=== PATIENT | male | born 1985 | race Caucasian/White ===

== ENCOUNTER 2019-11-07 01:34 | Observation (INO) ==
[2019-11-07] MEDS ORDERED: *HR* LORazepam 2 MG/ML VIAL IVP ONE ×2 (02:09→03:38)
[2019-11-07 02:55] LABS: Basophils # 0.1 K/mcL (0.0-0.2); Basophils % 0.6 %; Eosinophils # 0.1 K/mcL (0.0-0.6); Eosinophils % 0.7 %; Hematocrit 50.2 % (37.5-50.1); Hemoglobin 17.2 g/dL (12.9-16.9); Immature Granulocytes % 0.4 % (0-4); Lymphocytes # 1.7 K/mcL (0.6-4.6); Lymphocytes % 17.1 %; Mean Corpuscular HGB Conc 34.3 g/dL (31.6-35.5); Mean Corpuscular Hemoglobin 30.5 pg (28.0-33.3); Mean Platelet Volume 10.3 fL (9.4-12.4); Monocytes # 1.2 K/mcL (0.0-1.3); Monocytes % 12.5 %; Neutrophils # 6.8 K/mcL (1.6-8.9); Platelet Count 148 K/mcL (140-400); Red Blood Count 5.64 M/mcL (4.19-5.50); Red Cell Distribution Width 13.5 % (11.5-14.5); Segmented Neutrophils % 68.7 %
[2019-11-07 02:56] LABS: Prothrombin Time 10.8 Seconds (9.4-12.1)
[2019-11-07 02:58] LABS: Activated Partial Thrombo Time 30.6 Seconds (26.0-36.0)
[2019-11-07 03:08] LABS: Amphetamine Screen,Urine Positive ng/mL (Cutoff=1000); Barbiturate Screen,Urine Negative ng/mL (Cutoff=200); Benzodiazepines Screen,Urine Negative ng/mL (Cutoff=200); Cannabinoid Screen,Urine Negative ng/mL (Cutoff = 50); Cocaine Screen,Urine Positive ng/mL (Cutoff= 300); Opiate Screen,Urine Negative ng/mL (Cutoff=300); Phencyclidine Screen,Urine Negative ng/mL (Cutoff=25)
[2019-11-07 03:10] LABS: Alanine Aminotransferase 99 Units/L (7-52); Albumin 5.1 g/dL (3.5-5.7); Albumin/Globulin Ratio 1.5 (1.1-2.2); Alkaline Phosphatase 57 Units/L (34-104); Aspartate Amino Transferase 96 Units/L (13-39); BUN/Creatinine Ratio 8 (6-26); Bilirubin,Direct 0.2 mg/dL (0.0-0.2); Bilirubin,Indirect 0.8 mg/dL (0.0-1.0); Blood Urea Nitrogen 6 mg/dL (6-20); Calcium 10.6 mg/dL (8.6-10.3); Carbon Dioxide 28 mEq/L (23-29); Chloride 95 mEq/L (98-107); Ethanol < 10 mg/dL (Less than 10); Globulin 3.4 g/dL (2.4-3.5); Glucose 107 mg/dL (70-105); Lipase 41 Units/L (11-82); Osmolality,Calculated 280 (280-300); Potassium 3.8 mEq/L (3.5-5.1); Sodium 136 mEq/L (136-145); Total Protein 8.5 g/dL (6.4-8.9); Troponin I < 0.03 ng/mL (< 0.04); eGFR For African Americans > 60 (> 60); eGFR For Non-African Americans > 60 (> 60)
[2019-11-07] MEDS ORDERED: 0.9 % Sodium Chloride 1,000 ML ONE (03:37)
[2019-11-07] MEDS ORDERED: 0.9 % Sodium Chloride 1,000 ML IV ONE (03:52)
[2019-11-07] MEDS ORDERED: Aspirin 325 MG TABLET PO ONE (04:01)
[2019-11-07] MEDS ORDERED: *HR* Promethazine 25 MG/ML VIAL IVP PRN (04:42)
[2019-11-07] MEDS ORDERED: Naloxone 0.4 MG/ML INJ IVP PRN (04:42)
[2019-11-07] MEDS ORDERED: 0.9 % Sodium Chloride 1,000 ML IVC SCH (04:45)
[2019-11-07] MEDS ORDERED: Perflutren Lipid Microsphere 1.3 ML in 0.9 % Sodium Chloride 8.7 ML IVP PRN (04:51)
[2019-11-07 06:21] VITALS: BP 149/80
[2019-11-07] MEDS ORDERED: *HR* LORazepam 2 MG/ML VIAL IVP PRN (06:51)
[2019-11-07 07:35] LABS: Cholesterol 247 mg/dL (< 200); HDL Cholesterol 82 mg/dL (40-59); LDL Cholesterol,Calculated 146 mg/dL (< 100); Phosphorous 3.6 mg/dL (2.7-4.5); Triglycerides 95 mg/dL (< 150)
[2019-11-07 07:47] LABS: Thyroid Stimulating Hormone 3.173 mcIU/mL (0.340-5.600)
[2019-11-07] MEDS ORDERED: Folic Acid 1 MG TABLET PO SCH (09:00)
[2019-11-07] MEDS ORDERED: Thiamine (B-1) 100 MG, Folic Acid 1 MG, MVI, adult with vitamin K 10 ML in 0.9 % Sodi... IVPB SCH (18:00)
== END 2019-11-07 11:11 | disposition home or self-care (01) ==
LOC: SUATTDRO → 2ANU 01:34 → EMEROOARM 01:34 → 2ANU 10:17
PROVIDERS: ADMIT Family Medicine; ATTEND Family Medicine

== ENCOUNTER 2019-11-07 11:13 | Inpatient (IN) ==
[~2019-11-07 11:13] MED LIST: *HR* Etomidate 40 MG/20 ML VIAL IVP ONE; *HR* Midazolam HCl 2 MG/2 ML VIAL IVP ONE; *HR* Midazolam HCl 5 MG/5 ML VIAL IVP ONE; *HR* Propofol 200 MG/20 ML VIAL IVP ONE; *HR* Rocuronium Bromide 50 MG/5 ML VIAL IVP ONE
[2019-11-07] MEDS ORDERED: *HR* LORazepam 1 MG TABLET PO ONE (11:27)
[2019-11-07] MEDS ORDERED: Ondansetron 4 MG/2 ML VIAL IVP PRN (12:06)
[2019-11-07] MEDS ORDERED: Naloxone 0.4 MG/ML INJ IVP PRN (12:06)
[2019-11-07] MEDS ORDERED: Mag Hydrox/Al Hydrox/Simeth 30 ML UDC PO PRN (12:06)
[2019-11-07] MEDS ORDERED: MOM Conc 10 ML UD.LIQ PO PRN (12:06)
[2019-11-07] MEDS ORDERED: *HR* LORazepam 2 MG/ML VIAL IVP PRN ×3 (12:10→14:32)
[2019-11-07 13:16] LABS: Troponin I < 0.03 ng/mL (< 0.04)
[2019-11-07] MEDS ORDERED: cloNIDine HCL 0.1 MG TABLET PO SCH ×2 (14:25→15:00)
[2019-11-07] MEDS ORDERED: Haloperidol Lactate 5 MG/ML VIAL IM PRN (14:31)
[2019-11-07] MEDS: *HR* LORazepam 2 MG/ML VIAL IVP PRN ×4 (15:46→16:40)
[2019-11-07] MEDS: Dexmedetomidine HCl 400 MCG/100 ML MLS IVC SCH ×3 (16:11→21:23)
[2019-11-07] MEDS ORDERED: Ringers Solution, Lactated 1,000 ML IVC SCH (16:30)
[2019-11-07] MEDS ORDERED: Midazolam HCl 50 MG/100 ML IV.SOLN IVC SCH (17:30)
[2019-11-07] MEDS ORDERED: FentaNYL (PF) 1,000 MCG/100 ML IV.SOLN IVC SCH ×2 (17:30→17:49)
[2019-11-07 17:33] LABS: Creatine Kinase 931 Units/L (30-223)
[2019-11-07] MEDS ORDERED: PHENobarbital 65 MG/ML VIAL IVP PRN (17:47)
[2019-11-07] MEDS ORDERED: Ringers Solution, Lactated 1,000 ML ONE (17:56)
[2019-11-07] MEDS ORDERED: Artificial Tears SOLN 15 ML BOTTLE BOTH EYES PRN (18:24)
[2019-11-07 18:37] LABS: Adenovirus Not Detected (Not Detect); Bordetella Pertussis Not Detected (Not Detect); Chlamydophila pneumoniae Not Detected (Not Detect); Coronavirus 229E Not Detected (Not Detect); Coronavirus HKU1 Not Detected (Not Detect); Coronavirus NL63 Not Detected (Not Detect); Coronavirus OC43 Not Detected (Not Detect); Human Metapneumovirus Not Detected (Not Detect); Human Rhinovirus/Enterovirus Not Detected (Not Detect); Influenza A Subtype 2009 H1 Not Detected (Not Detect); Influenza B Not Detected (Not Detect); Mycoplasma pneumoniae Not Detected (Not Detect); Parainfluenza Virus 1 Not Detected (Not Detect); Parainfluenza Virus 2 Not Detected (Not Detect); Parainfluenza Virus 3 Not Detected (Not Detect); Parainfluenza Virus 4 Not Detected (Not Detect); Respiratory Syncytial Virus Not Detected (Not Detect); SARS-CoV-2 Not Detected (Not Detect)
[2019-11-07 19:06] LABS: ABG Base Excess 1 mEq/L (-2 to 3); ABG HCO3 26 mEq/L (21-27); ABG Oxygen Saturation 100 % (95-98); ABG PCO2 43 mmHg (35-45); ABG PH 7.39 pH Units (7.32-7.45); ABG PO2 470 mmHg (85-104); ABG TCO2 28 mEq/L (20-26)
[2019-11-07] MEDS ORDERED: Dexmedetomidine HCl 400 MCG/100 ML MLS IVC ONE (19:07)
[2019-11-07 19:40] LABS: Bilirubin,Urine Negative (Negative); Blood,Urine Small (Negative); Clarity,Urine Clear (Clear); Color,Urine Light-Orange (Yellow); Glucose,Urine (UA) Normal (Normal); Ketones,Urine 60 mg/dL (Negative); Leukocyte Esterase,Urine Negative (Negative); Nitrite,Urine Negative (Negative); PH,Urine 6.5 pH Units (5.0-8.0); Protein,Urine 50 mg/dL (Neg-Trace); RBC,Urine 0-3 per hpf (0-3); Specific Gravity,Urine 1.025 (1.010-1.025); Squamous Epithelial Cell,Urine Few per hpf (None-Few); WBC,Urine 0-3 per hpf (0-3)
[2019-11-07 20:00] LABS: BUN/Creatinine Ratio 15 (6-26); Blood Urea Nitrogen 9 mg/dL (6-20); Calcium 8.9 mg/dL (8.6-10.3); Carbon Dioxide 23 mEq/L (23-29); Chloride 103 mEq/L (98-107); Creatine Kinase 1014 Units/L (30-223); Glucose 136 mg/dL (70-105); Osmolality,Calculated 285 (280-300); Potassium 3.5 mEq/L (3.5-5.1); Sodium 137 mEq/L (136-145); Troponin I < 0.03 ng/mL (< 0.04); eGFR For African Americans > 60 (> 60); eGFR For Non-African Americans > 60 (> 60)
[2019-11-07] MEDS: Artificial Tears SOLN 15 ML BOTTLE BOTH EYES SCH ×2 (20:26→23:52)
[2019-11-07] MEDS: Chlorhexidine Rinse 15 ML MOUTHWASH MM SCH (20:26)
[2019-11-07] MEDS: Thiamine (B-1) 100 MG, Folic Acid 1 MG, MVI, adult with vitamin K 10 ML in 0.9 % Sodi... IVPB SCH (21:38)
[2019-11-07] MEDS: FentaNYL (PF) 1,000 MCG/100 ML IV.SOLN IVC SCH (23:46)
[2019-11-07] MEDS: *HR* Heparin 5,000 UNIT/ML VIAL SQ SCH (23:51)
[2019-11-08] MEDS: Dexmedetomidine HCl 400 MCG/100 ML MLS IVC SCH ×6 (01:04→22:50)
[2019-11-08 01:09] LABS: Creatine Kinase 915 Units/L (30-223); Troponin I < 0.03 ng/mL (< 0.04)
[2019-11-08] MEDS: Ringers Solution, Lactated 1,000 ML IVC SCH ×3 (02:30→11:34)
[2019-11-08] MEDS: Artificial Tears SOLN 15 ML BOTTLE BOTH EYES SCH ×6 (04:11→23:10)
[2019-11-08] MEDS: Midazolam HCl 50 MG/100 ML IV.SOLN IVC SCH ×2 (04:48→19:06)
[2019-11-08 04:49] LABS: ABG Base Excess 0 mEq/L (-2 to 3); ABG HCO3 26 mEq/L (21-27); ABG Oxygen Saturation 95 % (95-98); ABG PCO2 51 mmHg (35-45); ABG PH 7.33 pH Units (7.32-7.45); ABG PO2 82 mmHg (85-104); ABG TCO2 28 mEq/L (20-26); Blood Gas VT 500 cc
[2019-11-08] MEDS: FentaNYL (PF) 1,000 MCG/100 ML IV.SOLN IVC SCH ×4 (04:53→23:23)
[2019-11-08 05:53] LABS: Basophils # 0.1 K/mcL (0.0-0.2); Basophils % 0.4 %; Eosinophils # 0.3 K/mcL (0.0-0.6); Eosinophils % 2.2 %; Hematocrit 44.1 % (37.5-50.1); Immature Granulocytes % 0.5 % (0-4); Lymphocytes # 1.7 K/mcL (0.6-4.6); Lymphocytes % 15.2 %; Mean Corpuscular HGB Conc 32.4 g/dL (31.6-35.5); Mean Corpuscular Hemoglobin 29.6 pg (28.0-33.3); Mean Corpuscular Volume 91.3 fL (83.0-100.0); Mean Platelet Volume 10.3 fL (9.4-12.4); Monocytes # 0.5 K/mcL (0.0-1.3); Monocytes % 4.3 %; Neutrophils # 8.7 K/mcL (1.6-8.9); Platelet Count 106 K/mcL (140-400); Red Blood Count 4.83 M/mcL (4.19-5.50); Red Cell Distribution Width 13.4 % (11.5-14.5); Segmented Neutrophils % 77.4 %; White Blood Count 11.2 K/mcL (4.3-11.1)
[2019-11-08 05:54] LABS: Hemoglobin 14.3 g/dL (12.9-16.9)
[2019-11-08 06:14] LABS: Alanine Aminotransferase 68 Units/L (7-52); Albumin 3.8 g/dL (3.5-5.7); Albumin/Globulin Ratio 1.5 (1.1-2.2); Alkaline Phosphatase 45 Units/L (34-104); Aspartate Amino Transferase 76 Units/L (13-39); BUN/Creatinine Ratio 12 (6-26); Blood Urea Nitrogen 8 mg/dL (6-20); Calcium 8.8 mg/dL (8.6-10.3); Carbon Dioxide 26 mEq/L (23-29); Chloride 103 mEq/L (98-107); Globulin 2.5 g/dL (2.4-3.5); Glucose 93 mg/dL (70-105); Osmolality,Calculated 282 (280-300); Potassium 3.4 mEq/L (3.5-5.1); Sodium 137 mEq/L (136-145); Total Protein 6.3 g/dL (6.4-8.9); eGFR For African Americans > 60 (> 60); eGFR For Non-African Americans > 60 (> 60)
[2019-11-08 06:16] LABS: Magnesium 1.8 mg/dL (1.6-2.6); Phosphorous 3.9 mg/dL (2.7-4.5)
[2019-11-08] MEDS ORDERED: Calcium Gluconate 1gm/50mL 1 GM/50 ML BAG IVPB PRN (06:45)
[2019-11-08] MEDS: *HR* Heparin 5,000 UNIT/ML VIAL SQ SCH ×3 (07:57→23:18)
[2019-11-08] MEDS: Chlorhexidine Rinse 15 ML MOUTHWASH MM SCH ×2 (07:58→19:40)
[2019-11-08] MEDS ORDERED: Perflutren Lipid Microsphere 1.3 ML in 0.9 % Sodium Chloride 8.7 ML IVP PRN (08:33)
[2019-11-08] MEDS ORDERED: Vitamin B Complex/Vit C/Vit E 1 EACH TABLET PO SCH (09:00)
[2019-11-08] MEDS ORDERED: Folic Acid 1 MG TABLET PO SCH (09:00)
[2019-11-08] MEDS ORDERED: Thiamine (B-1) 100 MG TABLET PO SCH (09:00)
[2019-11-08 09:36] LABS: Troponin I < 0.03 ng/mL (< 0.04)
[2019-11-08] MEDS: Norepinephrine 4 MG/254 ML IV.SOLN IVC SCH (11:28)
[2019-11-08] MEDS ORDERED: Ringers Solution, Lactated 1,000 ML ONE (11:33)
[2019-11-08] MEDS: Phenylephrine 10 MG in 0.9 % Sodium Chloride 250 ML IVC SCH ×2 (15:57→23:09)
[2019-11-08] MEDS ORDERED: Vancomycin 1,250 MG/262.5 ML IV.SOLN IVPB ONE (16:19)
[2019-11-08] MEDS: Cefepime HCl 2,000 MG in Water for inj. (sterile) 20 ML IVP SCH (17:25)
[2019-11-08] MEDS: Thiamine (B-1) 100 MG, Folic Acid 1 MG, MVI, adult with vitamin K 10 ML in 0.9 % Sodi... IVPB SCH (17:26)
[2019-11-08] MEDS: Hydrocortisone Sodium Succ 100 MG/2 ML VIAL IVP SCH ×2 (17:26→23:17)
[2019-11-08 17:56] LABS: Bilirubin,Urine Small (Negative); Blood,Urine Negative (Negative); Clarity,Urine Clear (Clear); Color,Urine Dark-Yellow (Yellow); Glucose,Urine (UA) Normal (Normal); Granular Casts,Urine Few per lpf (None Seen); Hyaline Casts,Urine Moderate per lpf (None Seen); Ketones,Urine Trace mg/dL (Negative); Leukocyte Esterase,Urine Negative (Negative); Mucus,Urine Few per lpf (None-Few); Nitrite,Urine Negative (Negative); PH,Urine 5.5 pH Units (5.0-8.0); Protein,Urine 50 mg/dL (Neg-Trace); Squamous Epithelial Cell,Urine Few per hpf (None-Few)
[2019-11-08] MEDS ORDERED: Piperacillin/Tazobactam 4.5 GM in 0.9 % Sodium Chloride Mini Bag 100 ML IVPB SCH (18:00)
[2019-11-08 18:01] LABS: Sodium, Urine 34.5 mEq/L
[2019-11-08 19:08] LABS: BUN/Creatinine Ratio 12 (6-26); Blood Urea Nitrogen 11 mg/dL (6-20); Calcium 8.1 mg/dL (8.6-10.3); Carbon Dioxide 24 mEq/L (23-29); Chloride 104 mEq/L (98-107); Glucose 98 mg/dL (70-105); Osmolality,Calculated 277 (280-300); Potassium 4.4 mEq/L (3.5-5.1); Sodium 134 mEq/L (136-145); eGFR For African Americans > 60 (> 60); eGFR For Non-African Americans > 60 (> 60)
[2019-11-09] MEDS: Dexmedetomidine HCl 400 MCG/100 ML MLS IVC SCH ×4 (03:13→19:34)
[2019-11-09] MEDS: Artificial Tears SOLN 15 ML BOTTLE BOTH EYES SCH ×6 (03:13→23:12)
[2019-11-09 03:57] LABS: VBG Ionized Calcium 1.18 mmol/L (1.15-1.35)
[2019-11-09 04:06] LABS: Basophils % 0.3 %; Eosinophils % 0.1 %; Hematocrit 44.3 % (37.5-50.1); Immature Granulocytes % 1.4 % (0-4); Lymphocytes # 0.9 K/mcL (0.6-4.6); Lymphocytes % 5.4 %; Mean Corpuscular HGB Conc 31.6 g/dL (31.6-35.5); Mean Corpuscular Hemoglobin 29.8 pg (28.0-33.3); Mean Corpuscular Volume 94.3 fL (83.0-100.0); Mean Platelet Volume 11.7 fL (9.4-12.4); Monocytes # 1.1 K/mcL (0.0-1.3); Monocytes % 6.7 %; Neutrophils # 13.7 K/mcL (1.6-8.9); Platelet Count 110 K/mcL (140-400); Red Cell Distribution Width 13.5 % (11.5-14.5); Segmented Neutrophils % 86.1 %; White Blood Count 15.9 K/mcL (4.3-11.1)
[2019-11-09] MEDS: Cefepime HCl 2,000 MG in Water for inj. (sterile) 20 ML IVP SCH ×3 (04:06→23:14)
[2019-11-09 04:22] LABS: BUN/Creatinine Ratio 10 (6-26); Blood Urea Nitrogen 7 mg/dL (6-20); Calcium 8.6 mg/dL (8.6-10.3); Carbon Dioxide 23 mEq/L (23-29); Chloride 103 mEq/L (98-107); Glucose 150 mg/dL (70-105); Magnesium 1.9 mg/dL (1.6-2.6); Osmolality,Calculated 279 (280-300); Phosphorous 3.7 mg/dL (2.7-4.5); Potassium 4.8 mEq/L (3.5-5.1); Sodium 134 mEq/L (136-145); eGFR For African Americans > 60 (> 60); eGFR For Non-African Americans > 60 (> 60)
[2019-11-09 04:46] LABS: ABG Base Excess -2 mEq/L (-2 to 3); ABG HCO3 26 mEq/L (21-27); ABG Oxygen Saturation 95 % (95-98); ABG PCO2 56 mmHg (35-45); ABG PH 7.28 pH Units (7.32-7.45); ABG PO2 86 mmHg (85-104); ABG TCO2 28 mEq/L (20-26); Blood Gas Modality AF; Blood Gas VT 500 cc
[2019-11-09] MEDS: FentaNYL (PF) 1,000 MCG/100 ML IV.SOLN IVC SCH (05:12)
[2019-11-09 05:14] LABS: Basophils # 0.1 K/mcL (0.0-0.2)
[2019-11-09 05:48] LABS: Creatine Kinase 247 Units/L (30-223)
[2019-11-09] MEDS ORDERED: Vancomycin 1,250 MG/262.5 ML IV.SOLN IVPB ONE (06:00)
[2019-11-09 06:59] LABS: Platelet Estimate Slight Decrease (Normal)
[2019-11-09] MEDS: Hydrocortisone Sodium Succ 100 MG/2 ML VIAL IVP SCH (08:47)
[2019-11-09] MEDS: Chlorhexidine Rinse 15 ML MOUTHWASH MM SCH ×2 (08:47→19:33)
[2019-11-09] MEDS: *HR* Heparin 5,000 UNIT/ML VIAL SQ SCH ×3 (08:47→23:14)
[2019-11-09] MEDS: Norepinephrine 4 MG/254 ML IV.SOLN IVC SCH (08:48)
[2019-11-09] MEDS ORDERED: Pantoprazole 40 MG VIAL IVP ONE (10:45)
[2019-11-09] MEDS: FentaNYL (PF) 2,500 MCG/50 ML IV.SOLN IVC SCH (12:10)
[2019-11-09] MEDS: Midazolam HCl 50 MG/100 ML IV.SOLN IVC SCH (14:05)
[2019-11-09] MEDS: Phenylephrine 10 MG in 0.9 % Sodium Chloride 250 ML IVC SCH (23:12)
[2019-11-10] MEDS: FentaNYL (PF) 2,500 MCG/50 ML IV.SOLN IVC SCH ×2 (01:16→12:10)
[2019-11-10] MEDS: Dexmedetomidine HCl 400 MCG/100 ML MLS IVC SCH ×5 (01:17→20:47)
[2019-11-10] MEDS: Artificial Tears SOLN 15 ML BOTTLE BOTH EYES SCH ×5 (03:25→20:50)
[2019-11-10 03:43] LABS: Lymphocytes % 18.2 %; Mean Corpuscular Volume 93.5 fL (83.0-100.0); Mean Platelet Volume 11.2 fL (9.4-12.4); Red Cell Distribution Width 13.6 % (11.5-14.5)
[2019-11-10 03:45] LABS: Basophils # 0.1 K/mcL (0.0-0.2); Basophils % 0.7 %; Eosinophils # 0.2 K/mcL (0.0-0.6); Eosinophils % 1.7 %; Hematocrit 39.1 % (37.5-50.1); Hemoglobin 12.8 g/dL (12.9-16.9); Immature Granulocytes % 0.9 % (0-4); Immature Platelets 8.7 % (1.1-6.1); Lymphocytes # 2.5 K/mcL (0.6-4.6); Mean Corpuscular HGB Conc 32.7 g/dL (31.6-35.5); Mean Corpuscular Hemoglobin 30.6 pg (28.0-33.3); Monocytes # 1.4 K/mcL (0.0-1.3); Monocytes % 9.9 %; Neutrophils # 9.5 K/mcL (1.6-8.9); Platelet Count 133 K/mcL (140-400); Red Blood Count 4.18 M/mcL (4.19-5.50); Segmented Neutrophils % 68.6 %; White Blood Count 13.8 K/mcL (4.3-11.1)
[2019-11-10 03:49] LABS: VBG Ionized Calcium 1.22 mmol/L (1.15-1.35)
[2019-11-10 03:58] LABS: Magnesium 1.9 mg/dL (1.6-2.6)
[2019-11-10 04:00] LABS: BUN/Creatinine Ratio 14 (6-26); Blood Urea Nitrogen 10 mg/dL (6-20); Calcium 8.9 mg/dL (8.6-10.3); Carbon Dioxide 29 mEq/L (23-29); Chloride 103 mEq/L (98-107); Glucose 145 mg/dL (70-105); Osmolality,Calculated 288 (280-300); Sodium 138 mEq/L (136-145); eGFR For African Americans > 60 (> 60); eGFR For Non-African Americans > 60 (> 60)
[2019-11-10 04:11] LABS: Platelet Estimate Normal (Normal)
[2019-11-10 05:03] LABS: ABG Base Excess 5 mEq/L (-2 to 3); ABG HCO3 32 mEq/L (21-27); ABG Oxygen Saturation 94 % (95-98); ABG PCO2 56 mmHg (35-45); ABG PH 7.36 pH Units (7.32-7.45); ABG PO2 77 mmHg (85-104); ABG TCO2 34 mEq/L (20-26); Blood Gas Modality AF; Blood Gas VT 500 cc
[2019-11-10] MEDS: Potassium Phosphate 44 MEQ in 0.9 % Sodium Chloride 250 ML IVPB PRN (05:05)
[2019-11-10] MEDS: Midazolam HCl 50 MG/100 ML IV.SOLN IVC SCH (06:46)
[2019-11-10] MEDS: Pantoprazole 40 MG VIAL IVP SCH (10:01)
[2019-11-10] MEDS: Cefepime HCl 2,000 MG in Water for inj. (sterile) 20 ML IVP SCH ×2 (10:01→19:34)
[2019-11-10] MEDS: *HR* Heparin 5,000 UNIT/ML VIAL SQ SCH ×2 (10:02→17:54)
[2019-11-10] MEDS: Norepinephrine 4 MG/254 ML IV.SOLN IVC SCH (10:03)
[2019-11-10] MEDS: Chlorhexidine Rinse 15 ML MOUTHWASH MM SCH ×2 (10:09→20:50)
[2019-11-10] MEDS ORDERED: cefTRIAXone 2,000 MG in Water for inj. (sterile) 20 ML IVP ONE (16:30)
[2019-11-10] MEDS: cefTRIAXone 2,000 MG in Water for inj. (sterile) 20 ML IVP SCH (17:59)
[2019-11-11] MEDS: *HR* Heparin 5,000 UNIT/ML VIAL SQ SCH ×3 (00:29→18:24)
[2019-11-11] MEDS: Artificial Tears SOLN 15 ML BOTTLE BOTH EYES SCH ×6 (00:30→20:51)
[2019-11-11] MEDS: FentaNYL (PF) 2,500 MCG/50 ML IV.SOLN IVC SCH ×2 (00:49→14:05)
[2019-11-11] MEDS: Dexmedetomidine HCl 400 MCG/100 ML MLS IVC SCH ×5 (02:06→22:01)
[2019-11-11 03:59] LABS: ABG Base Excess 6 mEq/L (-2 to 3); ABG HCO3 32 mEq/L (21-27); ABG Oxygen Saturation 93 % (95-98); ABG PCO2 55 mmHg (35-45); ABG PH 7.38 pH Units (7.32-7.45); ABG PO2 69 mmHg (85-104); ABG TCO2 34 mEq/L (20-26); Blood Gas Modality ASSIST CONTROL; Blood Gas VT 500 cc
[2019-11-11 04:13] LABS: Hemoglobin 12.3 g/dL (12.9-16.9); Mean Corpuscular HGB Conc 32.4 g/dL (31.6-35.5); Mean Corpuscular Hemoglobin 30.4 pg (28.0-33.3); Mean Corpuscular Volume 93.8 fL (83.0-100.0); Mean Platelet Volume 10.8 fL (9.4-12.4); Platelet Count 164 K/mcL (140-400); Red Blood Count 4.05 M/mcL (4.19-5.50); Red Cell Distribution Width 13.5 % (11.5-14.5); White Blood Count 11.4 K/mcL (4.3-11.1)
[2019-11-11 04:33] LABS: BUN/Creatinine Ratio 17 (6-26); Blood Urea Nitrogen 10 mg/dL (6-20); Calcium 8.6 mg/dL (8.6-10.3); Carbon Dioxide 31 mEq/L (23-29); Chloride 100 mEq/L (98-107); Glucose 115 mg/dL (70-105); Magnesium 1.6 mg/dL (1.6-2.6); Osmolality,Calculated 286 (280-300); Potassium 3.7 mEq/L (3.5-5.1); Sodium 138 mEq/L (136-145); eGFR For African Americans > 60 (> 60); eGFR For Non-African Americans > 60 (> 60)
[2019-11-11 05:12] LABS: Eosinophils # 0.7 K/mcL (0.0-0.6); Lymphocytes # 2.7 K/mcL (0.6-4.6); Monocytes # 0.9 K/mcL (0.0-1.3); Neutrophils # 7.1 K/mcL (1.6-8.9)
[2019-11-11 05:13] LABS: Platelet Estimate Normal (Normal)
[2019-11-11] MEDS: Norepinephrine 4 MG/254 ML IV.SOLN IVC SCH (08:48)
[2019-11-11] MEDS: Chlorhexidine Rinse 15 ML MOUTHWASH MM SCH ×2 (08:48→20:51)
[2019-11-11] MEDS: Phenylephrine 10 MG in 0.9 % Sodium Chloride 250 ML IVC SCH (08:48)
[2019-11-11] MEDS: Pantoprazole 40 MG VIAL IVP SCH (08:48)
[2019-11-11] MEDS: Midazolam HCl 50 MG/100 ML IV.SOLN IVC SCH (13:05)
[2019-11-11] MEDS: cefTRIAXone 2,000 MG in Water for inj. (sterile) 20 ML IVP SCH (18:25)
[2019-11-12] MEDS: *HR* Heparin 5,000 UNIT/ML VIAL SQ SCH ×3 (00:20→16:32)
[2019-11-12] MEDS: Artificial Tears SOLN 15 ML BOTTLE BOTH EYES SCH ×6 (00:21→20:33)
[2019-11-12] MEDS: FentaNYL (PF) 2,500 MCG/50 ML IV.SOLN IVC SCH ×3 (02:52→21:56)
[2019-11-12] MEDS: Dexmedetomidine HCl 400 MCG/100 ML MLS IVC SCH ×6 (02:59→23:04)
[2019-11-12 04:08] LABS: VBG Ionized Calcium 1.18 mmol/L (1.15-1.35)
[2019-11-12 04:16] LABS: Hematocrit 38.2 % (37.5-50.1); Hemoglobin 12.4 g/dL (12.9-16.9); Mean Corpuscular HGB Conc 32.5 g/dL (31.6-35.5); Mean Corpuscular Hemoglobin 29.8 pg (28.0-33.3); Mean Corpuscular Volume 91.8 fL (83.0-100.0); Mean Platelet Volume 10.4 fL (9.4-12.4); Nucleated Red Blood Cells 0.2 /100 WBC (0); Platelet Count 214 K/mcL (140-400); Red Blood Count 4.16 M/mcL (4.19-5.50); Red Cell Distribution Width 13.3 % (11.5-14.5); White Blood Count 10.7 K/mcL (4.3-11.1)
[2019-11-12 04:31] LABS: BUN/Creatinine Ratio 15 (6-26); Blood Urea Nitrogen 8 mg/dL (6-20); Calcium 8.7 mg/dL (8.6-10.3); Carbon Dioxide 32 mEq/L (23-29); Chloride 99 mEq/L (98-107); Glucose 125 mg/dL (70-105); Magnesium 1.8 mg/dL (1.6-2.6); Osmolality,Calculated 284 (280-300); Phosphorous 4.9 mg/dL (2.7-4.5); Potassium 3.8 mEq/L (3.5-5.1); Sodium 137 mEq/L (136-145); eGFR For African Americans > 60 (> 60); eGFR For Non-African Americans > 60 (> 60)
[2019-11-12 04:39] LABS: ABG Base Excess 9 mEq/L (-2 to 3); ABG HCO3 36 mEq/L (21-27); ABG Oxygen Saturation 95 % (95-98); ABG PCO2 59 mmHg (35-45); ABG PH 7.39 pH Units (7.32-7.45); ABG PO2 77 mmHg (85-104); ABG TCO2 38 mEq/L (20-26); Blood Gas Modality ASSIST CONTROL; Blood Gas VT 500 cc
[2019-11-12 05:25] LABS: Lymphocytes # 1.9 K/mcL (0.6-4.6); Monocytes # 1.1 K/mcL (0.0-1.3); Neutrophils # 7.7 K/mcL (1.6-8.9); Platelet Estimate Normal (Normal)
[2019-11-12] MEDS: Chlorhexidine Rinse 15 ML MOUTHWASH MM SCH ×2 (07:12→20:32)
[2019-11-12] MEDS: Pantoprazole 40 MG VIAL IVP SCH (07:13)
[2019-11-12] MEDS: Phenylephrine 10 MG in 0.9 % Sodium Chloride 250 ML IVC SCH (07:13)
[2019-11-12] MEDS: Norepinephrine 4 MG/254 ML IV.SOLN IVC SCH (07:13)
[2019-11-12] MEDS ORDERED: Ipratropium/Albuterol Neb 3 ML IH PRN (14:39)
[2019-11-12] MEDS: cefTRIAXone 2,000 MG in Water for inj. (sterile) 20 ML IVP SCH (18:39)
[2019-11-12] MEDS: Midazolam HCl 50 MG/100 ML IV.SOLN IVC SCH (18:40)
[2019-11-12] MEDS: Thiamine (B-1) 100 MG, Folic Acid 1 MG, MVI, adult with vitamin K 10 ML in 0.9 % Sodi... IVPB SCH (19:14)
[2019-11-13] MEDS: *HR* Heparin 5,000 UNIT/ML VIAL SQ SCH ×3 (00:02→16:36)
[2019-11-13] MEDS: Artificial Tears SOLN 15 ML BOTTLE BOTH EYES SCH ×6 (00:03→20:11)
[2019-11-13] MEDS: Dexmedetomidine HCl 400 MCG/100 ML MLS IVC SCH ×4 (03:35→22:19)
[2019-11-13 04:13] LABS: Hematocrit 39.5 % (37.5-50.1); Mean Corpuscular HGB Conc 32.9 g/dL (31.6-35.5); Mean Corpuscular Hemoglobin 30.6 pg (28.0-33.3); Mean Corpuscular Volume 92.9 fL (83.0-100.0); Mean Platelet Volume 10.1 fL (9.4-12.4); Nucleated Red Blood Cells 0.2 /100 WBC (0); Platelet Count 283 K/mcL (140-400); Red Blood Count 4.25 M/mcL (4.19-5.50); Red Cell Distribution Width 13.4 % (11.5-14.5); White Blood Count 12.5 K/mcL (4.3-11.1)
[2019-11-13 04:22] LABS: VBG Ionized Calcium 1.21 mmol/L (1.15-1.35)
[2019-11-13 04:32] LABS: BUN/Creatinine Ratio 13 (6-26); Blood Urea Nitrogen 7 mg/dL (6-20); Carbon Dioxide 32 mEq/L (23-29); Chloride 98 mEq/L (98-107); Glucose 126 mg/dL (70-105); Osmolality,Calculated 280 (280-300); Sodium 135 mEq/L (136-145); eGFR For African Americans > 60 (> 60); eGFR For Non-African Americans > 60 (> 60)
[2019-11-13] MEDS: Scopolamine Patch 1.5 MG PATCH.TD72 TD SCH (04:55)
[2019-11-13 04:56] LABS: ABG Base Excess 5 mEq/L (-2 to 3); ABG HCO3 33 mEq/L (21-27); ABG Oxygen Saturation 89 % (95-98); ABG PCO2 63 mmHg (35-45); ABG PH 7.32 pH Units (7.32-7.45); ABG PO2 62 mmHg (85-104); ABG TCO2 35 mEq/L (20-26); Blood Gas VT 500 cc
[2019-11-13 05:05] LABS: Lymphocytes # 2.3 K/mcL (0.6-4.6); Monocytes # 0.5 K/mcL (0.0-1.3); Platelet Estimate Normal (Normal)
[2019-11-13] MEDS ORDERED: Furosemide 20 MG/2 ML VIAL IVP ONE (05:43)
[2019-11-13 07:16] LABS: Magnesium 1.8 mg/dL (1.6-2.6); Phosphorous 5.3 mg/dL (2.7-4.5)
[2019-11-13] MEDS: FentaNYL (PF) 2,500 MCG/50 ML IV.SOLN IVC SCH ×2 (07:20→20:11)
[2019-11-13] MEDS: Chlorhexidine Rinse 15 ML MOUTHWASH MM SCH ×2 (08:00→20:15)
[2019-11-13] MEDS: Pantoprazole 40 MG VIAL IVP SCH (08:00)
[2019-11-13] MEDS: Midazolam HCl 50 MG/100 ML IV.SOLN IVC SCH ×2 (08:07→17:10)
[2019-11-13] MEDS: Thiamine (B-1) 100 MG TABLET GTUBE SCH ×2 (16:36→20:16)
[2019-11-13] MEDS: cefTRIAXone 2,000 MG in Water for inj. (sterile) 20 ML IVP SCH (16:37)
[2019-11-13] MEDS: Docusate Oral Soln 100 MG/10 ML UDC GTUBE SCH ×2 (16:49→20:15)
[2019-11-13] MEDS: QUEtiapine Fumarate 25 MG TABLET PO SCH ×2 (16:49→20:15)
[2019-11-13] MEDS: Thiamine (B-1) 100 MG, Folic Acid 1 MG, MVI, adult with vitamin K 10 ML in 0.9 % Sodi... IVPB SCH (17:18)
[2019-11-13] MEDS: Norepinephrine 4 MG/254 ML IV.SOLN IVC SCH (19:53)
[2019-11-14] MEDS: Artificial Tears SOLN 15 ML BOTTLE BOTH EYES SCH ×7 (00:02→23:39)
[2019-11-14] MEDS: *HR* Heparin 5,000 UNIT/ML VIAL SQ SCH ×4 (00:08→23:38)
[2019-11-14] MEDS: Dexmedetomidine HCl 400 MCG/100 ML MLS IVC SCH ×5 (02:47→20:44)
[2019-11-14 03:57] LABS: Hematocrit 39.7 % (37.5-50.1); Mean Corpuscular HGB Conc 32.7 g/dL (31.6-35.5); Mean Corpuscular Hemoglobin 29.8 pg (28.0-33.3); Mean Corpuscular Volume 91.1 fL (83.0-100.0); Mean Platelet Volume 9.6 fL (9.4-12.4); Platelet Count 340 K/mcL (140-400); Red Blood Count 4.36 M/mcL (4.19-5.50); Red Cell Distribution Width 13.6 % (11.5-14.5)
[2019-11-14 04:16] LABS: BUN/Creatinine Ratio 15 (6-26); Blood Urea Nitrogen 9 mg/dL (6-20); Calcium 9.2 mg/dL (8.6-10.3); Carbon Dioxide 33 mEq/L (23-29); Chloride 100 mEq/L (98-107); Glucose 123 mg/dL (70-105); Osmolality,Calculated 288 (280-300); Phosphorous 5.2 mg/dL (2.7-4.5); Sodium 139 mEq/L (136-145); eGFR For African Americans > 60 (> 60); eGFR For Non-African Americans > 60 (> 60)
[2019-11-14 04:50] LABS: ABG Base Excess 6 mEq/L (-2 to 3); ABG HCO3 33 mEq/L (21-27); ABG Oxygen Saturation 94 % (95-98); ABG PCO2 54 mmHg (35-45); ABG PH 7.39 pH Units (7.32-7.45); ABG PO2 73 mmHg (85-104); ABG TCO2 35 mEq/L (20-26); Blood Gas VT 500 cc
[2019-11-14] MEDS: Midazolam HCl 50 MG/100 ML IV.SOLN IVC SCH ×2 (04:57→15:20)
[2019-11-14 05:08] LABS: Lymphocytes # 2.6 K/mcL (0.6-4.6); Monocytes # 1.2 K/mcL (0.0-1.3); Neutrophils # 7.2 K/mcL (1.6-8.9); Platelet Estimate Normal (Normal)
[2019-11-14] MEDS: Docusate Oral Soln 100 MG/10 ML UDC GTUBE SCH ×2 (07:30→20:45)
[2019-11-14] MEDS: Pantoprazole 40 MG VIAL IVP SCH (07:30)
[2019-11-14] MEDS: Chlorhexidine Rinse 15 ML MOUTHWASH MM SCH ×2 (07:30→20:45)
[2019-11-14] MEDS: Thiamine (B-1) 100 MG TABLET GTUBE SCH ×3 (07:30→20:45)
[2019-11-14] MEDS: FentaNYL (PF) 2,500 MCG/50 ML IV.SOLN IVC SCH ×2 (08:00→20:17)
[2019-11-14] MEDS ORDERED: Vancomycin 1,750 MG/517.5 ML IV.SOLN IVPB ONE (09:00)
[2019-11-14 09:19] LABS: Bilirubin,Urine Negative (Negative); Blood,Urine Negative (Negative); Clarity,Urine Turbid (Clear); Color,Urine Yellow (Yellow); Glucose,Urine (UA) Normal (Normal); Ketones,Urine Negative (Negative); Leukocyte Esterase,Urine Negative (Negative); Nitrite,Urine Negative (Negative); PH,Urine 6.5 pH Units (5.0-8.0); Protein,Urine Trace mg/dL (Neg-Trace); Specific Gravity,Urine 1.021 (1.010-1.025); Squamous Epithelial Cell,Urine Few per hpf (None-Few); Urobilinogen,Urine Normal (Normal); WBC,Urine 0-3 per hpf (0-3)
[2019-11-14] MEDS: Ipratropium/Albuterol Neb 3 ML IH SCH ×5 (09:45→23:16)
[2019-11-14] MEDS: Cefepime HCl 2,000 MG in 0.9 % Sodium Chloride Mini Bag 100 ML IVPB SCH ×3 (10:36→23:38)
[2019-11-14] MEDS: Thiamine (B-1) 100 MG, Folic Acid 1 MG, MVI, adult with vitamin K 10 ML in 0.9 % Sodi... IVPB SCH (18:31)
[2019-11-14] MEDS: QUEtiapine Fumarate 100 MG TABLET PO SCH (20:45)
[2019-11-14] MEDS: Norepinephrine 4 MG/254 ML IV.SOLN IVC SCH (20:45)
[2019-11-14] MEDS: Vancomycin 1,500 MG/265 ML IV.SOLN IVPB SCH (21:26)
[2019-11-15] MEDS: Dexmedetomidine HCl 400 MCG/100 ML MLS IVC SCH ×7 (01:10→23:47)
[2019-11-15] MEDS: Midazolam HCl 50 MG/100 ML IV.SOLN IVC SCH (01:56)
[2019-11-15] MEDS: Ipratropium/Albuterol Neb 3 ML IH SCH ×5 (03:23→19:50)
[2019-11-15] MEDS: Artificial Tears SOLN 15 ML BOTTLE BOTH EYES SCH ×4 (03:48→16:11)
[2019-11-15 04:30] LABS: ABG Base Excess 3 mEq/L (-2 to 3); ABG HCO3 28 mEq/L (21-27); ABG Oxygen Saturation 95 % (95-98); ABG PCO2 47 mmHg (35-45); ABG PH 7.39 pH Units (7.32-7.45); ABG PO2 77 mmHg (85-104); ABG TCO2 30 mEq/L (20-26); Blood Gas Modality ASSIST CONTROL; Blood Gas VT 500 cc
[2019-11-15 04:39] LABS: Hematocrit 39.5 % (37.5-50.1); Hemoglobin 12.7 g/dL (12.9-16.9); Mean Corpuscular HGB Conc 32.2 g/dL (31.6-35.5); Mean Corpuscular Hemoglobin 30.3 pg (28.0-33.3); Mean Corpuscular Volume 94.3 fL (83.0-100.0); Mean Platelet Volume 9.5 fL (9.4-12.4); Platelet Count 359 K/mcL (140-400); Red Blood Count 4.19 M/mcL (4.19-5.50); Red Cell Distribution Width 13.9 % (11.5-14.5); White Blood Count 11.6 K/mcL (4.3-11.1)
[2019-11-15 04:58] LABS: BUN/Creatinine Ratio 21 (6-26); Blood Urea Nitrogen 11 mg/dL (6-20); Calcium 9.2 mg/dL (8.6-10.3); Carbon Dioxide 27 mEq/L (23-29); Chloride 102 mEq/L (98-107); Glucose 141 mg/dL (70-105); Osmolality,Calculated 288 (280-300); Sodium 138 mEq/L (136-145); eGFR For African Americans > 60 (> 60); eGFR For Non-African Americans > 60 (> 60)
[2019-11-15 05:47] LABS: Eosinophils # 0.5 K/mcL (0.0-0.6); Lymphocytes # 2.1 K/mcL (0.6-4.6); Monocytes # 0.9 K/mcL (0.0-1.3); Neutrophils # 8.1 K/mcL (1.6-8.9)
[2019-11-15] MEDS: Cefepime HCl 2,000 MG in 0.9 % Sodium Chloride Mini Bag 100 ML IVPB SCH ×2 (07:51→16:09)
[2019-11-15] MEDS: Docusate Oral Soln 100 MG/10 ML UDC GTUBE SCH ×2 (07:52→20:20)
[2019-11-15] MEDS: *HR* Heparin 5,000 UNIT/ML VIAL SQ SCH ×2 (07:52→16:10)
[2019-11-15] MEDS: Chlorhexidine Rinse 15 ML MOUTHWASH MM SCH (07:53)
[2019-11-15] MEDS: Pantoprazole 40 MG VIAL IVP SCH (07:53)
[2019-11-15] MEDS: Thiamine (B-1) 100 MG TABLET GTUBE SCH ×3 (07:53→20:20)
[2019-11-15] MEDS: Vancomycin 1,500 MG/265 ML IV.SOLN IVPB SCH ×3 (07:58→22:06)
[2019-11-15] MEDS: Norepinephrine 4 MG/254 ML IV.SOLN IVC SCH (08:01)
[2019-11-15] MEDS: FentaNYL (PF) 2,500 MCG/50 ML IV.SOLN IVC SCH (08:03)
[2019-11-15 14:00] LABS: Magnesium 1.9 mg/dL (1.6-2.6); Phosphorous 5.4 mg/dL (2.7-4.5)
[2019-11-15] MEDS: *HR* LORazepam 2 MG/ML VIAL IVP PRN ×3 (14:25→23:42)
[2019-11-15] MEDS ORDERED: *HR* Metoprolol 5 MG/5 ML VIAL IVP ONE (16:07)
[2019-11-15] MEDS: Acetaminophen 325 MG TABLET PO PRN (16:20)
[2019-11-15] MEDS: Thiamine (B-1) 100 MG, Folic Acid 1 MG, MVI, adult with vitamin K 10 ML in 0.9 % Sodi... IVPB SCH (17:32)
[2019-11-15] MEDS: QUEtiapine Fumarate 100 MG TABLET PO SCH (20:17)
[2019-11-15] MEDS ORDERED: Acetaminophen IV 1,000 MG/100 ML INFUS..BTL IVPB ONE (23:13)
[2019-11-15] MEDS: GuaiFENesin Liq 200 MG/10 ML UDC PO SCH (23:17)
[2019-11-16] MEDS: Cefepime HCl 2,000 MG in 0.9 % Sodium Chloride Mini Bag 100 ML IVPB SCH ×4 (00:31→23:30)
[2019-11-16] MEDS: *HR* Heparin 5,000 UNIT/ML VIAL SQ SCH ×4 (00:31→23:30)
[2019-11-16] MEDS: Dexmedetomidine HCl 400 MCG/100 ML MLS IVC SCH ×7 (02:57→21:33)
[2019-11-16] MEDS: *HR* LORazepam 2 MG/ML VIAL IVP PRN ×3 (03:08→23:30)
[2019-11-16] MEDS: Scopolamine Patch 1.5 MG PATCH.TD72 TD SCH (04:16)
[2019-11-16 04:22] LABS: BUN/Creatinine Ratio 14 (6-26); Blood Urea Nitrogen 8 mg/dL (6-20); Calcium 9.7 mg/dL (8.6-10.3); Carbon Dioxide 26 mEq/L (23-29); Chloride 101 mEq/L (98-107); Glucose 111 mg/dL (70-105); Magnesium 1.7 mg/dL (1.6-2.6); Osmolality,Calculated 285 (280-300); Phosphorous 4.6 mg/dL (2.7-4.5); Potassium 3.7 mEq/L (3.5-5.1); Sodium 138 mEq/L (136-145); eGFR For African Americans > 60 (> 60); eGFR For Non-African Americans > 60 (> 60)
[2019-11-16 04:34] LABS: Basophils # 0.2 K/mcL (0.0-0.2); Basophils % 0.8 %; Eosinophils # 0.1 K/mcL (0.0-0.6); Eosinophils % 0.6 %; Hematocrit 39.6 % (37.5-50.1); Hemoglobin 13.4 g/dL (12.9-16.9); Immature Granulocytes % 2.2 % (0-4); Lymphocytes # 1.8 K/mcL (0.6-4.6); Lymphocytes % 7.6 %; Mean Corpuscular HGB Conc 33.8 g/dL (31.6-35.5); Mean Corpuscular Hemoglobin 29.6 pg (28.0-33.3); Mean Corpuscular Volume 87.6 fL (83.0-100.0); Mean Platelet Volume 9.6 fL (9.4-12.4); Monocytes # 1.8 K/mcL (0.0-1.3); Monocytes % 7.7 %; Neutrophils # 18.7 K/mcL (1.6-8.9); Nucleated Red Blood Cells 0.1 /100 WBC (0); Platelet Count 442 K/mcL (140-400); Red Blood Count 4.52 M/mcL (4.19-5.50); Red Cell Distribution Width 13.2 % (11.5-14.5); Segmented Neutrophils % 81.1 %; White Blood Count 23.1 K/mcL (4.3-11.1)
[2019-11-16] MEDS: GuaiFENesin Liq 200 MG/10 ML UDC PO SCH ×4 (05:14→23:22)
[2019-11-16] MEDS: Vancomycin 1,500 MG/265 ML IV.SOLN IVPB SCH ×3 (05:58→20:33)
[2019-11-16] MEDS ORDERED: Furosemide 20 MG/2 ML VIAL IVP ONE (07:52)
[2019-11-16] MEDS: Pantoprazole 40 MG VIAL IVP SCH (08:06)
[2019-11-16] MEDS ORDERED: Ondansetron 4 MG/2 ML VIAL IVP PRN (09:26)
[2019-11-16] MEDS: Thiamine (B-1) 100 MG TABLET GTUBE SCH (09:34)
[2019-11-16] MEDS: Docusate Oral Soln 100 MG/10 ML UDC GTUBE SCH ×2 (09:34→20:33)
[2019-11-16] MEDS ORDERED: *HR* LORazepam 2 MG/ML VIAL IVP ONE (10:35)
[2019-11-16] MEDS: Thiamine (B-1) 100 MG TABLET PO SCH ×2 (17:54→20:33)
[2019-11-16] MEDS: Nicotine 21 MG PATCH.TD24 TD SCH (17:58)
[2019-11-16] MEDS: Thiamine (B-1) 100 MG, Folic Acid 1 MG, MVI, adult with vitamin K 10 ML in 0.9 % Sodi... IVPB SCH (17:59)
[2019-11-16] MEDS: QUEtiapine Fumarate 100 MG TABLET PO SCH (20:33)
[2019-11-16 21:54] LABS: Source of Body Fluid RLL BAL
[2019-11-16 23:20] LABS: Appearance of Body Fluid Cloudy (Clear); Volume of Body Fluid 12 mL
[2019-11-17] MEDS: Dexmedetomidine HCl 400 MCG/100 ML MLS IVC SCH ×7 (00:43→23:28)
[2019-11-17] MEDS: GuaiFENesin Liq 200 MG/10 ML UDC PO SCH ×4 (02:15→23:24)
[2019-11-17] MEDS: *HR* LORazepam 2 MG/ML VIAL IVP PRN ×3 (04:09→14:56)
[2019-11-17] MEDS: Acetaminophen 325 MG TABLET PO PRN (04:10)
[2019-11-17 05:12] LABS: Basophils # 0.2 K/mcL (0.0-0.2); Basophils % 0.6 %; Eosinophils # 0.2 K/mcL (0.0-0.6); Eosinophils % 0.9 %; Hematocrit 37.8 % (37.5-50.1); Hemoglobin 12.2 g/dL (12.9-16.9); Immature Granulocytes % 1.3 % (0-4); Lymphocytes # 2.3 K/mcL (0.6-4.6); Lymphocytes % 9.4 %; Mean Corpuscular HGB Conc 32.3 g/dL (31.6-35.5); Mean Corpuscular Hemoglobin 28.9 pg (28.0-33.3); Mean Corpuscular Volume 89.6 fL (83.0-100.0); Monocytes # 1.9 K/mcL (0.0-1.3); Monocytes % 7.8 %; Neutrophils # 19.4 K/mcL (1.6-8.9); Platelet Count 471 K/mcL (140-400); Red Blood Count 4.22 M/mcL (4.19-5.50); Red Cell Distribution Width 13.1 % (11.5-14.5); White Blood Count 24.2 K/mcL (4.3-11.1)
[2019-11-17 05:31] LABS: BUN/Creatinine Ratio 18 (6-26); Blood Urea Nitrogen 11 mg/dL (6-20); Calcium 9.7 mg/dL (8.6-10.3); Carbon Dioxide 25 mEq/L (23-29); Chloride 105 mEq/L (98-107); Glucose 119 mg/dL (70-105); Magnesium 1.9 mg/dL (1.6-2.6); Osmolality,Calculated 289 (280-300); Phosphorous 2.4 mg/dL (2.7-4.5); Potassium 3.6 mEq/L (3.5-5.1); Sodium 139 mEq/L (136-145); eGFR For African Americans > 60 (> 60); eGFR For Non-African Americans > 60 (> 60)
[2019-11-17] MEDS ORDERED: Vancomycin 1,750 MG/517.5 ML IV.SOLN IVPB SCH (06:00)
[2019-11-17] MEDS ORDERED: *HR* LORazepam 2 MG/ML VIAL IVP ONE (06:02)
[2019-11-17] MEDS: *HR* Heparin 5,000 UNIT/ML VIAL SQ SCH ×3 (08:10→23:24)
[2019-11-17] MEDS: Cefepime HCl 2,000 MG in 0.9 % Sodium Chloride Mini Bag 100 ML IVPB SCH ×3 (08:10→23:24)
[2019-11-17] MEDS: Docusate Oral Soln 100 MG/10 ML UDC GTUBE SCH ×3 (08:10→21:08)
[2019-11-17] MEDS: Thiamine (B-1) 100 MG TABLET PO SCH ×4 (08:11→21:09)
[2019-11-17] MEDS: Nicotine 21 MG PATCH.TD24 TD SCH (08:11)
[2019-11-17] MEDS: Potassium Phosphate 44 MEQ in 0.9 % Sodium Chloride 250 ML IVPB PRN (08:32)
[2019-11-17] MEDS ORDERED: Furosemide 40 MG in 0.9 % Sodium Chloride 50 ML IVPB SCH (09:00)
[2019-11-17] MEDS: Haloperidol Lactate 5 MG/ML VIAL IVP SCH ×3 (09:23→23:24)
[2019-11-17] MEDS: Furosemide 40 MG/4 ML VIAL IVP SCH ×2 (09:23→21:18)
[2019-11-17] MEDS ORDERED: Acetaminophen IV 500 MG/50 ML INFUS..BTL IVPB ONE (11:24)
[2019-11-17] MEDS ORDERED: Pantoprazole 40 MG in 0.9 % Sodium Chloride 50 ML IVPB SCH (11:30)
[2019-11-17] MEDS: Pantoprazole 40 MG VIAL IVP SCH (11:50)
[2019-11-17] MEDS: Vancomycin 2,000 MG/520 ML IV.SOLN IVPB SCH ×2 (13:53→23:32)
[2019-11-17] MEDS ORDERED: Albuterol 2.5 MG/3 ML NEBULIZER IH PRN (14:47)
[2019-11-17] MEDS: Ipratropium/Albuterol Neb 3 ML IH SCH ×2 (15:53→21:43)
[2019-11-17 19:46] LABS: BUN/Creatinine Ratio 20 (6-26); Blood Urea Nitrogen 11 mg/dL (6-20); Calcium 9.5 mg/dL (8.6-10.3); Carbon Dioxide 26 mEq/L (23-29); Chloride 105 mEq/L (98-107); Glucose 144 mg/dL (70-105); Osmolality,Calculated 290 (280-300); Potassium 3.6 mEq/L (3.5-5.1); Sodium 139 mEq/L (136-145); eGFR For African Americans > 60 (> 60); eGFR For Non-African Americans > 60 (> 60)
[2019-11-18] MEDS: Dexmedetomidine HCl 400 MCG/100 ML MLS IVC SCH ×5 (02:45→20:03)
[2019-11-18] MEDS: Ipratropium/Albuterol Neb 3 ML IH SCH ×4 (03:33→21:57)
[2019-11-18 04:23] LABS: Basophils # 0.2 K/mcL (0.0-0.2); Basophils % 0.8 %; Eosinophils # 0.3 K/mcL (0.0-0.6); Eosinophils % 1.5 %; Hematocrit 36.3 % (37.5-50.1); Hemoglobin 11.9 g/dL (12.9-16.9); Immature Granulocytes % 1.1 % (0-4); Lymphocytes # 3.2 K/mcL (0.6-4.6); Mean Corpuscular HGB Conc 32.8 g/dL (31.6-35.5); Mean Corpuscular Hemoglobin 29.4 pg (28.0-33.3); Mean Corpuscular Volume 89.6 fL (83.0-100.0); Monocytes % 8.9 %; Neutrophils # 16.6 K/mcL (1.6-8.9); Platelet Count 519 K/mcL (140-400); Red Blood Count 4.05 M/mcL (4.19-5.50); Segmented Neutrophils % 73.7 %; White Blood Count 22.6 K/mcL (4.3-11.1)
[2019-11-18 04:24] LABS: VBG Ionized Calcium 1.13 mmol/L (1.15-1.35)
[2019-11-18 04:41] LABS: Magnesium 1.9 mg/dL (1.6-2.6); Phosphorous 4.2 mg/dL (2.7-4.5)
[2019-11-18 04:42] LABS: BUN/Creatinine Ratio 18 (6-26); Blood Urea Nitrogen 11 mg/dL (6-20); Calcium 9.6 mg/dL (8.6-10.3); Carbon Dioxide 28 mEq/L (23-29); Chloride 102 mEq/L (98-107); Glucose 118 mg/dL (70-105); Osmolality,Calculated 288 (280-300); Potassium 3.4 mEq/L (3.5-5.1); Sodium 139 mEq/L (136-145); eGFR For African Americans > 60 (> 60); eGFR For Non-African Americans > 60 (> 60)
[2019-11-18] MEDS ORDERED: Potassium Chloride Elixir 20 MEQ/15 ML UDC PO ONE (05:01)
[2019-11-18] MEDS: GuaiFENesin Liq 200 MG/10 ML UDC PO SCH ×3 (05:57→17:06)
[2019-11-18] MEDS: Vancomycin 2,000 MG/520 ML IV.SOLN IVPB SCH ×3 (06:01→22:22)
[2019-11-18] MEDS: Thiamine (B-1) 100 MG TABLET PO SCH ×3 (10:41→19:59)
[2019-11-18] MEDS: Furosemide 40 MG/4 ML VIAL IVP SCH ×2 (10:41→20:05)
[2019-11-18] MEDS: Docusate Oral Soln 100 MG/10 ML UDC GTUBE SCH ×2 (10:41→19:59)
[2019-11-18] MEDS: Pantoprazole 40 MG VIAL IVP SCH (10:42)
[2019-11-18] MEDS: Nicotine 21 MG PATCH.TD24 TD SCH (10:42)
[2019-11-18] MEDS: Haloperidol Lactate 5 MG/ML VIAL IVP SCH ×2 (10:42→16:45)
[2019-11-18] MEDS: Cefepime HCl 2,000 MG in 0.9 % Sodium Chloride Mini Bag 100 ML IVPB SCH ×2 (10:43→17:06)
[2019-11-18] MEDS: *HR* Heparin 5,000 UNIT/ML VIAL SQ SCH ×2 (10:43→17:06)
[2019-11-18] MEDS: *HR* LORazepam 2 MG/ML VIAL IVP PRN ×2 (12:35→21:52)
[2019-11-19] MEDS: GuaiFENesin Liq 200 MG/10 ML UDC PO SCH ×5 (00:06→23:49)
[2019-11-19] MEDS: *HR* Heparin 5,000 UNIT/ML VIAL SQ SCH ×4 (00:06→23:50)
[2019-11-19] MEDS: Haloperidol Lactate 5 MG/ML VIAL IVP SCH ×3 (00:08→15:16)
[2019-11-19] MEDS: Cefepime HCl 2,000 MG in 0.9 % Sodium Chloride Mini Bag 100 ML IVPB SCH ×2 (00:11→08:45)
[2019-11-19] MEDS: Dexmedetomidine HCl 400 MCG/100 ML MLS IVC SCH ×2 (02:30→13:45)
[2019-11-19] MEDS: Ipratropium/Albuterol Neb 3 ML IH SCH ×4 (03:29→22:03)
[2019-11-19] MEDS: Scopolamine Patch 1.5 MG PATCH.TD72 TD SCH (04:22)
[2019-11-19 05:19] LABS: Basophils # 0.2 K/mcL (0.0-0.2); Basophils % 1.1 %; Eosinophils # 0.5 K/mcL (0.0-0.6); Eosinophils % 2.7 %; Hematocrit 36.6 % (37.5-50.1); Hemoglobin 11.9 g/dL (12.9-16.9); Immature Granulocytes % 1.3 % (0-4); Lymphocytes # 3.2 K/mcL (0.6-4.6); Lymphocytes % 16.6 %; Mean Corpuscular HGB Conc 32.5 g/dL (31.6-35.5); Mean Corpuscular Hemoglobin 29.9 pg (28.0-33.3); Mean Platelet Volume 10.7 fL (9.4-12.4); Monocytes # 1.5 K/mcL (0.0-1.3); Monocytes % 7.8 %; Neutrophils # 13.5 K/mcL (1.6-8.9); Platelet Count 576 K/mcL (140-400); Red Blood Count 3.98 M/mcL (4.19-5.50); Red Cell Distribution Width 12.9 % (11.5-14.5); Segmented Neutrophils % 70.5 %; White Blood Count 19.2 K/mcL (4.3-11.1)
[2019-11-19 05:22] LABS: VBG Ionized Calcium 1.16 mmol/L (1.15-1.35)
[2019-11-19 05:38] LABS: Phosphorous 4.3 mg/dL (2.7-4.5)
[2019-11-19 05:39] LABS: BUN/Creatinine Ratio 20 (6-26); Blood Urea Nitrogen 12 mg/dL (6-20); Calcium 9.7 mg/dL (8.6-10.3); Carbon Dioxide 27 mEq/L (23-29); Chloride 103 mEq/L (98-107); Glucose 102 mg/dL (70-105); Osmolality,Calculated 290 (280-300); Potassium 3.4 mEq/L (3.5-5.1); Sodium 140 mEq/L (136-145); eGFR For African Americans > 60 (> 60); eGFR For Non-African Americans > 60 (> 60)
[2019-11-19] MEDS ORDERED: Potassium Chloride Elixir 20 MEQ/15 ML UDC PO ONE (06:05)
[2019-11-19] MEDS: Vancomycin 2,000 MG/520 ML IV.SOLN IVPB SCH ×3 (06:16→23:49)
[2019-11-19] MEDS: Pantoprazole 40 MG VIAL IVP SCH (08:44)
[2019-11-19] MEDS: Nicotine 21 MG PATCH.TD24 TD SCH (08:44)
[2019-11-19] MEDS: Thiamine (B-1) 100 MG TABLET PO SCH ×3 (08:44→20:09)
[2019-11-19] MEDS: Docusate Oral Soln 100 MG/10 ML UDC GTUBE SCH ×2 (08:44→20:09)
[2019-11-19] MEDS: Furosemide 40 MG/4 ML VIAL IVP SCH (08:45)
[2019-11-19] MEDS ORDERED: levoFLOXacin 750 MG TABLET PO SCH (11:00)
[2019-11-19] MEDS ORDERED: *HR* LORazepam 1 MG TABLET PO PRN (11:01)
[2019-11-19] MEDS ORDERED: *HR* Promethazine 25 MG/ML VIAL IVP PRN ×2 (11:02→14:32)
[2019-11-19] MEDS ORDERED: Furosemide 40 MG TABLET PO SCH (14:00)
[2019-11-19] MEDS ORDERED: Albuterol 2.5 MG/3 ML NEBULIZER IH PRN (14:32)
[2019-11-19] MEDS ORDERED: Potassium Phosphate 44 MEQ in 0.9 % Sodium Chloride 250 ML IVPB PRN (14:32)
[2019-11-19] MEDS ORDERED: Dexmedetomidine HCl 400 MCG/100 ML MLS IVC SCH (14:32)
[2019-11-19] MEDS ORDERED: Naloxone 0.4 MG/ML INJ IVP PRN (14:32)
[2019-11-19] MEDS ORDERED: Calcium Gluconate 1gm/50mL 1 GM/50 ML BAG IVPB PRN (14:32)
[2019-11-19] MEDS: *HR* LORazepam 1 MG TABLET PO PRN ×2 (17:27→22:45)
[2019-11-20] MEDS: Haloperidol Lactate 5 MG/ML VIAL IVP SCH ×2 (02:12→07:34)
[2019-11-20] MEDS: Ipratropium/Albuterol Neb 3 ML IH SCH (03:21)
[2019-11-20] MEDS: GuaiFENesin Liq 200 MG/10 ML UDC PO SCH (05:46)
[2019-11-20] MEDS: *HR* LORazepam 1 MG TABLET PO PRN (06:37)
[2019-11-20] MEDS: Vancomycin 2,000 MG/520 ML IV.SOLN IVPB SCH (07:33)
[2019-11-20] MEDS: *HR* Heparin 5,000 UNIT/ML VIAL SQ SCH (07:35)
[2019-11-20] MEDS: Docusate Oral Soln 100 MG/10 ML UDC GTUBE SCH (07:35)
[2019-11-20] MEDS: Thiamine (B-1) 100 MG TABLET PO SCH (07:36)
[2019-11-20 07:50] VITALS: BP 129/89
[2019-11-20 08:19] LABS: Basophils # 0.3 K/mcL (0.0-0.2); Basophils % 1.5 %; Eosinophils # 0.5 K/mcL (0.0-0.6); Eosinophils % 2.8 %; Hematocrit 37.5 % (37.5-50.1); Hemoglobin 12.2 g/dL (12.9-16.9); Immature Granulocytes % 2.2 % (0-4); Lymphocytes % 16.9 %; Mean Corpuscular HGB Conc 32.5 g/dL (31.6-35.5); Mean Corpuscular Hemoglobin 29.9 pg (28.0-33.3); Mean Corpuscular Volume 91.9 fL (83.0-100.0); Mean Platelet Volume 9.9 fL (9.4-12.4); Monocytes # 1.4 K/mcL (0.0-1.3); Platelet Count 674 K/mcL (140-400); Red Blood Count 4.08 M/mcL (4.19-5.50); Red Cell Distribution Width 13.1 % (11.5-14.5); Segmented Neutrophils % 68.6 %; White Blood Count 17.5 K/mcL (4.3-11.1)
[2019-11-20 08:36] LABS: BUN/Creatinine Ratio 18 (6-26); Blood Urea Nitrogen 12 mg/dL (6-20); Calcium 9.6 mg/dL (8.6-10.3); Carbon Dioxide 25 mEq/L (23-29); Chloride 106 mEq/L (98-107); Glucose 132 mg/dL (70-105); Osmolality,Calculated 296 (280-300); Potassium 3.2 mEq/L (3.5-5.1); Sodium 142 mEq/L (136-145); eGFR For African Americans > 60 (> 60); eGFR For Non-African Americans > 60 (> 60)
[2019-11-20] MEDS ORDERED: Furosemide 40 MG TABLET PO SCH (09:00)
[2019-11-20] MEDS ORDERED: levoFLOXacin 750 MG TABLET PO SCH (09:00)
[2019-11-20] MEDS ORDERED: Nicotine 21 MG PATCH.TD24 TD SCH (09:00)
[2019-11-22] MEDS ORDERED: Scopolamine Patch 1.5 MG PATCH.TD72 TD SCH (04:15)
== END 2019-11-20 09:03 | disposition left against medical advice (07) | DRG 52 ==
LOC: 2ANU 11:13 → EMEROOARM 11:13 → SUATTDRO 11:52 → 2ANU 12:27 → ICNU 19:17 → 2NNU 11-19 14:49
PROVIDERS: ADMIT Internal Medicine; ATTEND Internal Medicine

== ENCOUNTER 2020-03-08 20:09 | Observation (INO) ==
[2020-03-08] MEDS ORDERED: 0.9 % Sodium Chloride 1,000 ML IVC ONE (21:13)
[2020-03-08] MEDS ORDERED: Ondansetron 4 MG/2 ML VIAL IVP ONE (21:13)
[2020-03-08] MEDS ORDERED: Morphine Sulfate 2 MG/ML SYRINGE IVP ONE (21:14)
[2020-03-08 21:20] LABS: Bilirubin,Urine Negative (Negative); Blood,Urine Negative (Negative); Clarity,Urine Clear (Clear); Color,Urine Yellow (Yellow); Glucose,Urine (UA) Normal (Normal); Ketones,Urine Trace mg/dL (Negative); Leukocyte Esterase,Urine Negative (Negative); Mucus,Urine Few per lpf (None-Few); Nitrite,Urine Negative (Negative); Protein,Urine 70 mg/dL (Neg-Trace); RBC,Urine 0-3 per hpf (0-3); Specific Gravity,Urine > 1.030 (1.010-1.025); Urobilinogen,Urine Normal (Normal); WBC,Urine 0-3 per hpf (0-3)
[2020-03-08 21:32] LABS: Basophils % 0.1 %; Eosinophils # 0.1 K/mcL (0.0-0.6); Eosinophils % 0.3 %; Hemoglobin 16.7 g/dL (12.9-16.9); Immature Granulocytes % 0.5 % (0-4); Lymphocytes # 1.5 K/mcL (0.6-4.6); Lymphocytes % 8.2 %; Mean Corpuscular HGB Conc 34.1 g/dL (31.6-35.5); Mean Corpuscular Hemoglobin 28.8 pg (28.0-33.3); Mean Corpuscular Volume 84.6 fL (83.0-100.0); Mean Platelet Volume 10.1 fL (9.4-12.4); Monocytes # 1.3 K/mcL (0.0-1.3); Monocytes % 6.9 %; Neutrophils # 15.4 K/mcL (1.6-8.9); Platelet Count 257 K/mcL (140-400); Red Blood Count 5.79 M/mcL (4.19-5.50); Red Cell Distribution Width 13.7 % (11.5-14.5); White Blood Count 18.4 K/mcL (4.3-11.1)
[2020-03-08 21:42] LABS: Alanine Aminotransferase 27 Units/L (7-52); Albumin 4.6 g/dL (3.5-5.7); Albumin/Globulin Ratio 1.5 (1.1-2.2); Alkaline Phosphatase 49 Units/L (34-104); Aspartate Amino Transferase 29 Units/L (13-39); BUN/Creatinine Ratio 10 (6-26); Bilirubin,Direct 0.1 mg/dL (0.0-0.2); Bilirubin,Indirect 0.4 mg/dL (0.0-1.0); Bilirubin,Total 0.5 mg/dL (0.3-1.0); Blood Urea Nitrogen 8 mg/dL (6-20); Carbon Dioxide 29 mEq/L (23-29); Chloride 96 mEq/L (98-107); Ethanol < 10 mg/dL (Less than 10); Globulin 3.1 g/dL (2.4-3.5); Glucose 114 mg/dL (70-105); Lipase 196 Units/L (11-82); Osmolality,Calculated 277 (280-300); Sodium 134 mEq/L (136-145); Total Protein 7.7 g/dL (6.4-8.9); eGFR For African Americans > 60 (> 60); eGFR For Non-African Americans > 60 (> 60)
[2020-03-08 21:54] LABS: Amphetamine Screen,Urine Positive ng/mL (Cutoff=1000); Barbiturate Screen,Urine Negative ng/mL (Cutoff=200); Benzodiazepines Screen,Urine Negative ng/mL (Cutoff=200); Cannabinoid Screen,Urine Negative ng/mL (Cutoff = 50); Cocaine Screen,Urine Positive ng/mL (Cutoff= 300); Opiate Screen,Urine Negative ng/mL (Cutoff=300); Phencyclidine Screen,Urine Negative ng/mL (Cutoff=25)
[2020-03-08 21:58] LABS: Troponin I 0.05 ng/mL (< 0.04)
[2020-03-08] MEDS ORDERED: Ringers Solution, Lactated 1,000 ML IVC ONE (23:01)
[2020-03-09] MEDS ORDERED: Ondansetron 4 MG/2 ML VIAL IVP PRN (01:04)
[2020-03-09] MEDS ORDERED: *HR* Promethazine 25 MG/ML VIAL IM PRN (01:04)
[2020-03-09] MEDS ORDERED: Naloxone 0.4 MG/ML INJ IVP PRN (01:04)
[2020-03-09] MEDS ORDERED: Ketorolac 30 MG/ML VIAL IVP PRN ×2 (01:04→07:46)
[2020-03-09] MEDS ORDERED: *HR* LORazepam 2 MG/ML VIAL IVP PRN ×3 (01:07)
[2020-03-09] MEDS ORDERED: 0.9 % Sodium Chloride 1,000 ML IVC SCH ×2 (01:15→07:45)
[2020-03-09 03:34] LABS: Basophils % 0.2 %; Eosinophils # 0.1 K/mcL (0.0-0.6); Eosinophils % 0.5 %; Hematocrit 41.8 % (37.5-50.1); Immature Granulocytes % 0.4 % (0-4); Lymphocytes # 2.3 K/mcL (0.6-4.6); Lymphocytes % 13.5 %; Mean Corpuscular Volume 85.5 fL (83.0-100.0); Mean Platelet Volume 10.2 fL (9.4-12.4); Monocytes # 1.4 K/mcL (0.0-1.3); Monocytes % 8.2 %; Neutrophils # 13.3 K/mcL (1.6-8.9); Platelet Count 205 K/mcL (140-400); Red Blood Count 4.89 M/mcL (4.19-5.50); Red Cell Distribution Width 13.7 % (11.5-14.5); Segmented Neutrophils % 77.2 %; White Blood Count 17.2 K/mcL (4.3-11.1)
[2020-03-09 03:35] LABS: Hemoglobin 14.2 g/dL (12.9-16.9)
[2020-03-09 03:52] LABS: Chol/HDL Ratio 2.6 (0-4.9)
[2020-03-09 03:56] LABS: Alanine Aminotransferase 21 Units/L (7-52); Albumin 3.7 g/dL (3.5-5.7); Albumin/Globulin Ratio 1.4 (1.1-2.2); Alkaline Phosphatase 40 Units/L (34-104); Aspartate Amino Transferase 21 Units/L (13-39); BUN/Creatinine Ratio 9 (6-26); Bilirubin,Total 0.5 mg/dL (0.3-1.0); Blood Urea Nitrogen 7 mg/dL (6-20); Carbon Dioxide 27 mEq/L (23-29); Chloride 101 mEq/L (98-107); Globulin 2.6 g/dL (2.4-3.5); Glucose 93 mg/dL (70-105); Magnesium 1.6 mg/dL (1.6-2.6); Osmolality,Calculated 278 (280-300); Phosphorous 2.3 mg/dL (2.7-4.5); Sodium 135 mEq/L (136-145); Total Protein 6.3 g/dL (6.4-8.9); eGFR For African Americans > 60 (> 60); eGFR For Non-African Americans > 60 (> 60)
[2020-03-09 04:04] LABS: Troponin I 0.03 ng/mL (< 0.04)
[2020-03-09 06:15] LABS: Estimated Average Glucose 100 mg/dl; Hemoglobin A1C 5.1 %
[2020-03-09] MEDS ORDERED: Thiamine (B-1) 200 MG in 0.9 % Sodium Chloride 50 ML IVPB SCH (09:00)
[2020-03-09] MEDS ORDERED: Folic Acid 1 MG in 0.9 % Sodium Chloride 50 ML IVPB SCH (09:00)
[2020-03-09 10:58] VITALS: BP 115/77
[2020-03-09] MEDS ORDERED: Nicotine 21 MG PATCH.TD24 TD SCH (12:30)
[2020-03-09] MEDS ORDERED: *HR* Heparin 5,000 UNIT/ML VIAL SQ SCH (18:00)
[2020-03-10] MEDS ORDERED: levoFLOXacin 750 MG/150 ML 750 MG/150 ML BAG IVPB SCH (09:00)
== END 2020-03-09 16:18 | disposition left against medical advice (07) ==
LOC: EMEROOARM 20:09 → 3ANU 20:09
PROVIDERS: ADMIT Family Medicine; ATTEND Family Medicine

== ENCOUNTER 2020-04-12 18:30 | Observation (INO) ==
[2020-04-12] MEDS ORDERED: 0.9 % Sodium Chloride 1,000 ML IVC ONE ×2 (18:50→18:58)
[2020-04-12] MEDS ORDERED: Isovue-370 500 ML BOTTLE IVP ONE (18:58)
[2020-04-12 19:29] LABS: Basophils % 0.3 %; Eosinophils % 0.1 %; Red Blood Count 5.05 M/mcL (4.19-5.50); Red Cell Distribution Width 13.1 % (11.5-14.5)
[2020-04-12 19:30] LABS: Basophils # 0.1 K/mcL (0.0-0.2); Hematocrit 43.7 % (37.5-50.1); Hemoglobin 14.9 g/dL (12.9-16.9); Immature Granulocytes % 2.9 % (0-4); Lymphocytes # 1.7 K/mcL (0.6-4.6); Lymphocytes % 5.3 %; Mean Corpuscular HGB Conc 34.1 g/dL (31.6-35.5); Mean Corpuscular Hemoglobin 29.5 pg (28.0-33.3); Mean Corpuscular Volume 86.5 fL (83.0-100.0); Mean Platelet Volume 10.1 fL (9.4-12.4); Monocytes # 2.5 K/mcL (0.0-1.3); Platelet Count 248 K/mcL (140-400); Segmented Neutrophils % 83.4 %
[2020-04-12 19:31] LABS: Neutrophils # 26.1 K/mcL (1.6-8.9)
[2020-04-12 19:33] LABS: White Blood Count 31.3 K/mcL (4.3-11.1)
[2020-04-12 19:49] LABS: Alanine Aminotransferase 13 Units/L (7-52); Albumin 4.1 g/dL (3.5-5.7); Albumin/Globulin Ratio 1.5 (1.1-2.2); Alkaline Phosphatase 53 Units/L (34-104); Aspartate Amino Transferase 17 Units/L (13-39); BUN/Creatinine Ratio 6 (6-26); Bilirubin,Direct 0.1 mg/dL (0.0-0.2); Bilirubin,Indirect 0.4 mg/dL (0.0-1.0); Bilirubin,Total 0.5 mg/dL (0.3-1.0); Blood Urea Nitrogen 6 mg/dL (6-20); Calcium 9.5 mg/dL (8.6-10.3); Carbon Dioxide 22 mEq/L (23-29); Chloride 99 mEq/L (98-107); Globulin 2.8 g/dL (2.4-3.5); Glucose 142 mg/dL (70-105); Lipase 17 Units/L (11-82); Magnesium 1.1 mg/dL (1.6-2.6); Osmolality,Calculated 276 (280-300); Phosphorous 2.2 mg/dL (2.7-4.5); Potassium 3.2 mEq/L (3.5-5.1); Sodium 133 mEq/L (136-145); Total Protein 6.9 g/dL (6.4-8.9); Troponin I < 0.03 ng/mL (< 0.04); eGFR For African Americans > 60 (> 60); eGFR For Non-African Americans > 60 (> 60)
[2020-04-12 19:50] LABS: Platelet Estimate Normal (Normal); Toxic Granulation Present (Not Present)
[2020-04-12 19:51] LABS: Anisocytosis 1+ (Not Present); Reactive Lymphocytes Present (Not Present)
[2020-04-12] MEDS ORDERED: Vancomycin 1,500 MG/265 ML IV.SOLN IVPB ONE (20:00)
[2020-04-12 20:06] LABS: Bacteria,Urine Few per hpf (None-Few); Bilirubin,Urine Negative (Negative); Blood,Urine Negative (Negative); Clarity,Urine Clear (Clear); Color,Urine Yellow (Yellow); Glucose,Urine (UA) Normal (Normal); Hyaline Casts,Urine Few per lpf (None Seen); Ketones,Urine Trace mg/dL (Negative); Leukocyte Esterase,Urine Negative (Negative); Mucus,Urine Few per lpf (None-Few); Nitrite,Urine Negative (Negative); PH,Urine 6.5 pH Units (5.0-8.0); Protein,Urine 100 mg/dL (Neg-Trace); RBC,Urine 0-3 per hpf (0-3); Specific Gravity,Urine > 1.030 (1.010-1.025); Squamous Epithelial Cell,Urine Few per hpf (None-Few)
[2020-04-12] MEDS ORDERED: Cefepime HCl 1,000 MG in Water for inj. (sterile) 10 ML IVP STA (20:06)
[2020-04-12] MEDS ORDERED: SODIUM CHLORIDE IVC ONE (20:07)
[2020-04-12] MEDS ORDERED: 0.9 % Sodium Chloride 1,000 ML IVC SCH (22:30)
[2020-04-12] MEDS ORDERED: *HR* FentaNYL (PF) 100 MCG/2 ML VIAL IVP ONE ×2 (22:51→22:52)
[2020-04-12 23:27] LABS: Amphetamine Screen,Urine Positive ng/mL (Cutoff=1000); Barbiturate Screen,Urine Negative ng/mL (Cutoff=200); Benzodiazepines Screen,Urine Negative ng/mL (Cutoff=200); Cannabinoid Screen,Urine Negative ng/mL (Cutoff = 50); Cocaine Screen,Urine Positive ng/mL (Cutoff= 300); Opiate Screen,Urine Negative ng/mL (Cutoff=300); Phencyclidine Screen,Urine Negative ng/mL (Cutoff=25)
[2020-04-12] MEDS ORDERED: Naloxone 0.4 MG/ML INJ IVP PRN (23:36)
[2020-04-12] MEDS ORDERED: Ketorolac 15 MG/ML VIAL IVP PRN (23:36)
[2020-04-12] MEDS ORDERED: Ondansetron 4 MG/2 ML VIAL IVP PRN (23:36)
[2020-04-13] MEDS ORDERED: Perflutren Lipid Microsphere 1.3 ML in 0.9 % Sodium Chloride 8.7 ML IVP PRN (00:05)
[2020-04-13] MEDS: Ringers Solution, Lactated 1,000 ML IVC SCH ×2 (00:54→04:51)
[2020-04-13] MEDS ORDERED: Cefepime HCl 2,000 MG in 0.9 % Sodium Chloride Mini Bag 100 ML IVPB SCH (04:00)
[2020-04-13] MEDS ORDERED: Isovue-370 500 ML BOTTLE IVP ONE (05:28)
[2020-04-13 07:26] VITALS: BP 103/69
[2020-04-13 08:09] LABS: Mean Corpuscular HGB Conc 34.1 g/dL (31.6-35.5); Mean Platelet Volume 10.1 fL (9.4-12.4)
[2020-04-13 08:10] LABS: Hemoglobin 12.6 g/dL (12.9-16.9); Mean Corpuscular Hemoglobin 29.9 pg (28.0-33.3); Mean Corpuscular Volume 87.7 fL (83.0-100.0); Platelet Count 191 K/mcL (140-400); Red Blood Count 4.22 M/mcL (4.19-5.50); Red Cell Distribution Width 13.2 % (11.5-14.5); White Blood Count 26.6 K/mcL (4.3-11.1)
[2020-04-13] MEDS: Vancomycin 1,500 MG/265 ML IV.SOLN IVPB SCH ×2 (08:10→09:09)
[2020-04-13] MEDS ORDERED: *HR* OxyCODONE Immed Rel 5 MG TABLET PO PRN (08:18)
[2020-04-13] MEDS ORDERED: *HR* HYDROmorphone (PF) 1 MG/ML SYRINGE IVP PRN (08:19)
[2020-04-13 08:31] LABS: BUN/Creatinine Ratio 9 (6-26); Blood Urea Nitrogen 7 mg/dL (6-20); Carbon Dioxide 23 mEq/L (23-29); Chloride 107 mEq/L (98-107); Glucose 99 mg/dL (70-105); Osmolality,Calculated 286 (280-300); Potassium 3.6 mEq/L (3.5-5.1); Sodium 139 mEq/L (136-145); eGFR For African Americans > 60 (> 60); eGFR For Non-African Americans > 60 (> 60)
== END 2020-04-13 08:40 | disposition left against medical advice (07) ==
LOC: EMEROOARM 18:30 → 2NNU 18:30
PROVIDERS: ADMIT Internal Medicine; ATTEND Internal Medicine

== ENCOUNTER 2020-04-13 14:13 | Observation (INO) ==
[2020-04-13] MEDS ORDERED: 0.9 % Sodium Chloride 1,000 ML IVC ONE ×2 (14:53→16:35)
[2020-04-13 15:11] LABS: Basophils % 0.3 %; Lymphocytes % 8.6 %; Mean Platelet Volume 10.1 fL (9.4-12.4); Red Cell Distribution Width 13.2 % (11.5-14.5)
[2020-04-13 15:12] LABS: Basophils # 0.1 K/mcL (0.0-0.2); Eosinophils # 0.3 K/mcL (0.0-0.6); Hematocrit 38.9 % (37.5-50.1); Hemoglobin 12.9 g/dL (12.9-16.9); Immature Granulocytes % 5.8 % (0-4); Lymphocytes # 2.3 K/mcL (0.6-4.6); Mean Corpuscular HGB Conc 33.2 g/dL (31.6-35.5); Mean Corpuscular Hemoglobin 28.7 pg (28.0-33.3); Mean Corpuscular Volume 86.6 fL (83.0-100.0); Monocytes # 1.5 K/mcL (0.0-1.3); Monocytes % 5.7 %; Neutrophils # 21.2 K/mcL (1.6-8.9); Platelet Count 213 K/mcL (140-400); Red Blood Count 4.49 M/mcL (4.19-5.50); Segmented Neutrophils % 78.6 %
[2020-04-13 15:13] LABS: Platelet Estimate Normal (Normal)
[2020-04-13 15:31] LABS: Alanine Aminotransferase 31 Units/L (7-52); Albumin 3.5 g/dL (3.5-5.7); Albumin/Globulin Ratio 1.3 (1.1-2.2); Alkaline Phosphatase 47 Units/L (34-104); Amylase 20 Units/L (29-103); Aspartate Amino Transferase 38 Units/L (13-39); BUN/Creatinine Ratio 9 (6-26); Bilirubin,Direct 0.1 mg/dL (0.0-0.2); Bilirubin,Indirect 0.3 mg/dL (0.0-1.0); Bilirubin,Total 0.4 mg/dL (0.3-1.0); Blood Urea Nitrogen 8 mg/dL (6-20); Calcium 8.5 mg/dL (8.6-10.3); Carbon Dioxide 26 mEq/L (23-29); Chloride 104 mEq/L (98-107); Globulin 2.6 g/dL (2.4-3.5); Glucose 95 mg/dL (70-105); Lipase 16 Units/L (11-82); Osmolality,Calculated 282 (280-300); Potassium 3.6 mEq/L (3.5-5.1); Sodium 137 mEq/L (136-145); Total Protein 6.1 g/dL (6.4-8.9); eGFR For African Americans > 60 (> 60); eGFR For Non-African Americans > 60 (> 60)
[2020-04-13] MEDS ORDERED: Naloxone 0.4 MG/ML INJ IVP PRN (15:42)
[2020-04-13] MEDS ORDERED: Ondansetron 4 MG/2 ML VIAL IVP PRN (15:42)
[2020-04-13] MEDS ORDERED: Acetaminophen IV 1,000 MG/100 ML BAG IVPB ONE (15:54)
[2020-04-13] MEDS ORDERED: Calcium Gluconate 1gm/50mL 1 GM/50 ML BAG IVPB ONE (15:57)
[2020-04-13] MEDS ORDERED: Piperacillin/Tazobactam 3.375 GM in 0.9 % Sodium Chloride Mini Bag 100 ML IVPB SCH (16:00)
[2020-04-13] MEDS ORDERED: Nicotine 14 MG PATCH.TD24 TD SCH (16:00)
[2020-04-13] MEDS ORDERED: Vancomycin 1,500 MG/265 ML IV.SOLN IVPB ONE (16:25)
[2020-04-13] MEDS ORDERED: *HR* LORazepam 2 MG/ML VIAL IVP PRN ×3 (16:35)
[2020-04-13 16:43] LABS: Ethanol < 10 mg/dL (Less than 10)
[2020-04-13] MEDS: *HR* Heparin 5,000 UNIT/ML VIAL SQ SCH (17:18)
[2020-04-13] MEDS: 0.9 % Sodium Chloride 1,000 ML IVC SCH ×2 (23:21→23:34)
[2020-04-13] MEDS: Piperacillin/Tazobactam 3.375 GM in 0.9 % Sodium Chloride Mini Bag 100 ML IVPB SCH ×2 (23:32→23:33)
[2020-04-14] MEDS: Piperacillin/Tazobactam 3.375 GM in 0.9 % Sodium Chloride Mini Bag 100 ML IVPB SCH (03:09)
[2020-04-14 04:51] LABS: Hematocrit 32.9 % (37.5-50.1); Hemoglobin 11.5 g/dL (12.9-16.9); Mean Corpuscular Hemoglobin 29.9 pg (28.0-33.3); Mean Corpuscular Volume 85.5 fL (83.0-100.0); Mean Platelet Volume 10.2 fL (9.4-12.4); Platelet Count 211 K/mcL (140-400); Red Blood Count 3.85 M/mcL (4.19-5.50); Red Cell Distribution Width 13.5 % (11.5-14.5); White Blood Count 18.4 K/mcL (4.3-11.1)
[2020-04-14] MEDS: *HR* Heparin 5,000 UNIT/ML VIAL SQ SCH (04:59)
[2020-04-14] MEDS ORDERED: Vancomycin 1,500 MG/265 ML IV.SOLN IVPB SCH (05:00)
[2020-04-14 05:12] LABS: BUN/Creatinine Ratio 9 (6-26); Blood Urea Nitrogen 7 mg/dL (6-20); Calcium 7.9 mg/dL (8.6-10.3); Carbon Dioxide 23 mEq/L (23-29); Chloride 110 mEq/L (98-107); Glucose 126 mg/dL (70-105); Magnesium 1.2 mg/dL (1.6-2.6); Osmolality,Calculated 286 (280-300); Potassium 3.3 mEq/L (3.5-5.1); Sodium 138 mEq/L (136-145); Troponin I < 0.03 ng/mL (< 0.04); eGFR For African Americans > 60 (> 60); eGFR For Non-African Americans > 60 (> 60)
[2020-04-14] MEDS ORDERED: Calcium Gluconate 1gm/50mL 1 GM/50 ML BAG IVPB ONE (06:16)
[2020-04-14 07:29] VITALS: BP 112/73
== END 2020-04-14 08:36 | disposition left against medical advice (07) ==
LOC: 3ANU 14:13 → EMEROOARM 14:13 → SUATTDRO 15:44 → 3ANU 16:25
PROVIDERS: ADMIT Internal Medicine; ATTEND Pharmacist